=== PATIENT | male | born 2000 | race African-American/Black ===

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

== ENCOUNTER 2023-05-25 16:55 | Emergency (ER) | payer SELFPAY ==
[~2023-05-25] VITALS: Ht 182.8 cm; Wt 87.5 kg
[~2023-05-25 16:55] MED LIST changes: +ACHD5005 PO; +ALBU8.5H6 IH; +LEVO750T PO; -LEVO750T39 PO; +MOME13HF12; +MOME13HF12 IH; -MOME13HF2
[2023-05-25] MEDS ORDERED: Tetanus/Diphtheria/Pertussis (Acell) ADULT Vaccine 0.5 ML IM ONE (17:15)
--- NOTE | 2023-05-25 17:15 | ED Upper Extremity ---
General Chief Complaint: Upper Extremity Stated Complaint: INJ RIGHT THUMB Source: patient Exam Limitations: no limitations History of Present Illness Date Seen by Provider: May 25, 2023 Time Seen by Provider: 17:12 Initial Comments Patient is a 22-year-old male who presents to ED with injury to his right thumb. This occurred last night. Patient states he slammed his thumb yesterday evening around 10 PM. Slammed his thumb in a door while shutting. Patient pulled out his thumb at the time and states his nail fell off. Patient had bleeding throughout the night. Bleeding not controlled with direct pressure. Up-to-date on his tetanus. Reports numbness and tingling distally. Allergies and Home Medications Allergies Coded Allergies: montelukast (Unverified Allergy, Unknown, 12/09/15) Uncoded Allergies: CEPHALAXIN (Allergy, Unknown, 10/16/18) CERTAIN LAUNDRY DETERGENT (Allergy, Unknown, 12/09/15) SINGULAR (Allergy, Unknown, 10/16/18) Patient Home Medication List Home Medication List Reviewed: Yes Acyclovir (Zovirax) 30 Gm Oint, 30 GM TP QID Prescribed by: SANYA TALAVERA on 09/06/20 2347 Albuterol Sulfate (Ventolin Hfa) 1 Puff Puff, 2 PUFF IH Q4H PRN for SHORTNESS OF BREATH Prescribed by: BLADE MALONE on 01/14/18 1118 Albuterol Sulfate (Ventolin Hfa) 1 Puff Puff, 2 PUFF IH Q4H Prescribed by: SANYA TALAVERA on 09/07/20 0002 Amoxicillin/Potassium Clav (Amox Tr-K Clv 875-125 mg Tab) 1 Each Tablet, (Reported) Entered as Reported by: GEOVANY IBARRA on 12/18/18 0717 Cetirizine HCl (Cetirizine HCl) 10 Mg Tablet, 1 TAB PO DAILY Prescribed by: BLADE MALONE on 01/14/18 111 Doxycycline Hyclate (Doxycycline Hyclate) 100 Mg Tablet, 100 MG PO BID Prescribed by: SANYA TALAVERA on 09/06/20 2347 Fluticasone Propionate (Fluticasone Propionate) 16 Gm [place].susp, 1 SPRAY NS BID Prescribed by: BLADE MALONE on 01/14/18 111 Guaifenesin/Dextromethorphan (Mucinex Dm ER 1,200-60 mg Tab) 1 Each Tbmp.12hr, 1 EACH PO BID Prescribed by: SANYA TALAVERA on 09/07/20 0002 Hydrocodone/Acetaminophen (Hydrocodone-Acetamin 5-325 mg) 1 Each Tablet, 1 TAB PO Q4H PRN for PAIN-MODERATE (5-7) Prescribed by: SHEKHAR REIS on 11/01/21 1525 Ibuprofen (Ibuprofen) 800 Mg Tablet, 800 MG PO Q8H PRN for PAIN Prescribed by: BRET ABREU on 05/25/231754 Inhaler, Assist Devices (Space Chamber Plus) 1 Each Spacer, EACH MC, (DME) Prescribed by: SANYA TALAVERA on 09/07/20 0002 Mometasone/Formoterol (Dulera 100 Mcg/5 Mcg Inhaler) 13 Gm Hfa.aer.ad, 2 PUFF IH BID Prescribed by: BLADE MALONE on 01/14/18 1111 Ondansetron HCl (Ondansetron HCl) 8 Mg Tablet, (Reported) Entered as Reported by: GEOVANY IBARRA on 12/18/18 07 Pantoprazole Sodium (Pantoprazole Sodium) 40 Mg Tablet., (Reported) Entered as Reported by: GEOVANY IBARRA on 12/18/18 07 Sulfamethoxazole/Trimethoprim (Bactrim Ds Tablet) 800 Mg-160 Mg Tablet, 1 EACH PO BID Prescribed by: BRET ABREU on 05/25/231754 Tiotropium [place] (Spiriva) 1 Inh Aerp, 2 INH IH DAILY Prescribed by: BLADE MALONE on 01/14/18 1112 Valacyclovir HCl (Valtrex) 1,000 Mg Tablet, 1,000 MG PO TIDAC Prescribed by: SANYA TALAVERA on 09/06/20 2347 Discontinued Medications Cephalexin (Cephalexin) 500 Mg Tablet, 500 MG PO QID Prescribed by: BRET ABREU on 05/25/231751 Review of Systems Constitutional: No chills, No diaphoresis EENTM: No hearing loss, No ear pain, No blurred vision, No mouth pain, No mouth swelling Respiratory: No cough, No dyspnea on exertion, No short of breath Cardiovascular: No chest pain Gastrointestinal: No abdominal pain, No diarrhea, No nausea, No vomiting Genitourinary: No decreased output Musculoskeletal: No back pain; joint pain, muscle pain Skin: change in color All Other Systems Reviewed Negative Unless Noted: Yes Past Eaycxsy-Osnwjq-Keypzg Hx Patient Social History Tobacco Use?: Yes Use of E-Cig and/or Vaping dev: Yes E-Cig or Vaping type used: Nicotine Substance use?: Yes Substance type: Marijuana Alcohol Use?: Yes Alcohol Frequency: Several times a month Immunizations Up To Date Tetanus Booster (TDap): Less than 5yrs PED Vaccines UTD: Yes Seasonal Allergies Seasonal Allergies: Yes Past Medical History Surgery/Hospitalization HX: ASTHMA Surgeries: Yes (BMT'S) Ear Surgery Respiratory: Yes Asthma Currently Using CPAP: No Currently Using BIPAP: No Cardiac: No Neurological: No Reproductive Disorders: No Sexually Transmitted Disease: No HIV/AIDS: No Genitourinary: No Gastrointestinal: Yes Gastroesophageal Reflux Musculoskeletal: Yes (chronic tailbone pain ) Endocrine: No HEENT: Yes (S/P BMT'S) Chronic Ear Infection Loss of Vision: Denies Hearing Impairment: Denies Cancer: No Psychosocial: Yes (POLYSUBSTANCE ABUSE) ADD/ADHD, Depression Integumentary: Yes Eczema Blood Disorders: No Family Medical History Family history: Diabetes mellitus 03 MOTHER (BORDERLINE DIABETIC) Family history: Hypertension 03 MOTHER Hereditary disease 03 MOTHER (BORDERLINE DIABETIC) History of - disorder 03 MOTHER (ADD) 09 SISTER (SCLERODERMA ASBERGERS ADHD) Psychotic disorder 03 MOTHER (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 BIPOLAR) No Pertinent Family Hx Physical Exam Vital Signs Vital Signs - First Documented 05/25/23 16:59 Pulse 63 B/P (MAP) 145/85 (105) Pulse Ox 98 O2 Delivery Room Air Capillary Refill : Height, Weight, BMI Height: 5'11.00" Weight: 185lbs. 5.0oz. 83.543508to; 25.00 BMI Method:Stated General Appearance: WD/WN, no apparent distress HEENT: PERRL/EOMI, normal ENT inspection, TMs normal, pharynx normal Neck: non-tender, full range of motion, supple Cardiovascular: regular rate, rhythm, no edema, no gallop, no JVD Respiratory: chest non-tender, lungs clear, normal breath sounds, no respiratory distress, no accessory muscle use Gastrointestinal: normal bowel sounds, non tender, soft Back: normal inspection, no CVA tenderness Wrist: Yes normal inspection, Yes non-tender, Yes no evidence of injury Hand: Right (Nail removed from right nail bed. Superficial laceration noted less than 1 cm of the proximal andrew thumb. 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 Mild bleeding to the proximal nail. Nail completely avulsed) Progress/Results/Core Measures Results/Orders My Orders Orders - MARIELY BIRD Hand, Right, 3 Views (05/25/23 17:11) Dipht/Pertuss(Acell)/Tet Adult (Dipht/Pe (05/25/23 17:15) Hydrocodone/Apap 5/325 Tablet (Hydrocod (05/25/23 17:30) Medications Given in ED Current Medications Medications Dose Ordered Sig/Bunny Route Start Time Stop Time Status Last Admin Dose Admin Acetaminophen/ Hydrocodone Bitart 1 ea ONCE ONCE PO 05/25/23 17:30 05/25/23 17:31 DC 05/25/23 17:42 1 EA Diphtheria/ Tetanus/Acell Pertussis 0.5 ml ONCE ONCE IM 05/25/23 17:15 05/25/23 17:16 DC 05/25/23 17:18 0.5 ML Vital Signs/I&O 05/25/23 05/25/23 16:59 18:17 Pulse 63 63 B/P (MAP) 145/85 (105) 145/85 Pulse Ox 98 98 O2 Delivery Room Air Room Air Departure Communication (PCP) Patient injured his right thumb yesterday evening around 10 PM. Applied b andage. On exam there is a complete nail avulsion. Normal active range of motion. X-ray was ordered secondary to mechanism of injury which did not note any acute fracture. Received a dose of hydrocodone. Updated his tetanus. Bleeding was controlled. Neurovascular intact. Does have a small laceration to the right palmar thumb that will be left open to heal by secondary intention since the laceration has been open for greater than 12 hours. No obvious nailbed involvement. Patient was placed in Xeroform and tube gauze. Continue applying the gauze with Xeroform daily for the next week. Recommend Neosporin twice a day. Will discharge with Bactrim prophylactically. Follow-up your PCP in 1- 2 days for reevaluation. Provided a splint. Provide a few days worth of anti-inflammatories. Provided work note. Impression Primary Impression: Nail avulsion Disposition: HOME, SELF-CARE Condition: Stable Departure-Patient Inst. Decision time for Depature: 17:51 Referrals: [facility] [place] (PCP/Family) Primary Care Physician Patient Instructions: Nail Avulsion Scripts Sulfamethoxazole/Trimethoprim (Bactrim Ds Tablet) 800 Mg-160 Mg Tablet 1 EACH PO BID for 7 Days, #14 TAB Prov: MARIELY BIRD 05/25/23 Ibuprofen (Ibuprofen) 800 Mg Tablet 800 MG PO Q8H PRN for PAIN, #20 TAB Prov: MARIELY BIRD 05/25/23 Work/School Note: Work Release Form Date Seen in the Emergency Department: May 25, 2023 Return to Work: May 31, 2023 MARIELY BIRD May 25, 2023 17:15
[2023-05-25] MEDS ORDERED: HYDROcodone/ACETAMINOPHEN 5 MG/325 MG TABLET PO ONE (17:30)
--- NOTE | 2023-05-25 17:34 | Diagnostic Imaging Report ---
EXAM: HAND, RIGHT, 3 VIEWS INDICATION: Right thumb injury and pain. COMPARISON: None. FINDINGS: No fracture or malalignment. Soft tissue shadows are unremarkable. IMPRESSION: Negative right hand radiographs. Dictated by: Dictated on workstation # [id number]
[2023-05-25] MEDS ORDERED: CEPH500T PO (17:52)
[2023-05-25] MEDS ORDERED: IBUP-1780 PO (17:55)
[2023-05-25] MEDS ORDERED: SULF-221 PO (17:55)
[2023-05-25 18:17] VITALS: BP 145/85
== END 2023-05-25 18:17 | disposition home or self-care (01) ==
LOC: EDUNIT# 16:55 → ER 16:57
DX: S61.111A Laceration without foreign body of right thumb with damage to nail, initial encounter (principal); F17.290 Nicotine dependence, other tobacco product, uncomplicated; Z88.1 Allergy status to other antibiotic agents; Z23 Encounter for immunization; W22.8XXA Striking against or struck by other objects, initial encounter
CPT/HCPCS: 11730; 73130; 90715